=== PATIENT | male | born 1975 | race Caucasian/White ===

== ENCOUNTER 2017-09-11 04:27 | Emergency (ER) | payer OTHER ==
[2017-09-11 05:21] VITALS: BMI 31.9
--- NOTE | 2017-09-11 07:51 | PDOC ---
History of Present Illness <Rodolfo Garcia - Last Filed: 09/11/17 08:10> - General History Source: Patient Exam Limitations: No Limitations - History of Present Illness Initial Comments: 09/11/17 08:15 The patient is a 42 year old male with no significant PMH who presents to the emergency department with left ear and left mastoid swelling beginning approximately 5 days ago. The patient reports his swelling initially began posterior to his left ear which radiated to his left ear. He notes his ear swelling is associated with a slight left-sided headache and was initially associated with left ear pain which has since resolved. The patient also notes right hand pain which began within this past week. He reports his hand pain is intermittent and believes it to be associated with his joints. The patient also notes a cough within the past week which is intermittently productive of yellowish sputum. His girlfriend notes that she has had a post-nasal drip and 2 sinus infections within the past month and a half. The patient denies chest pain, shortness of breath, and dizziness. Denies fever, chills, nausea, vomit, diarrhea and constipation. Denies dysuria, frequency, urgency and hematuria. Allergies: NKA Past surgical history: None reported. Social history: No reported cigarette, alcohol, or drug use. PCP: Dr. Rosado ([facility]) <Peter Moralez - Last Filed: 09/11/17 08:17> - General Chief Complaint: Edema Stated Complaint: SWELLING,EAR/HANDS Time Seen by Provider: 09/11/17 07:48 Past History - Suicide/Smoking/Psychosocial Hx Smoking History: Never smoked Have you smoked in the past 12 months: No Information on smoking cessation initiated: No Hx Alcohol Use: No Drug/Substance Use Hx: No <Rodolfo Garcia - Last Filed: 09/11/17 08:10> <Peter Moralez - Last Filed: 09/11/17 08:17> - Past Medical History Allergies/Adverse Reactions: Allergies Allergy/AdvReac Type Severity Reaction Status Date / Time No Known Allergies Allergy Verified 09/11/17 05:18 Home Medications: Ambulatory Orders Ciprofloxacin [Cipro (Restricted To Id)] 500 mg PO BID #14 tablet 09/11/17 Review of Systems - Review of Systems Able to Perform ROS?: Yes Comments:: 09/11/17 08:15 CONSTITUTIONAL: No fever, no chills, no fatigue EYES: No visual changes ENT: (+) Left ear and left mastoid swelling. no sore throat CARDIOVASCULAR: No chest pain, no palpitations RESPIRATORY: No cough, no SOB GI: No abdominal pain. No nausea, no vomiting, no constipation, no diarrhea GENITOURINARY: No dysuria, no frequency, no hematuria MUSKULOSKELETAL: (+) Right hand joint pain. No backpain, no myalgias SKIN: No rash NEURO: (+) Slight left sided headache. <Peter Moralez - Last Filed: 09/11/17 08:17> *Physical Exam - Vital Signs Last Vital Signs Temp Pulse Resp BP Pulse Ox 98.2 F 81 14 133/80 97 09/11/17 05:19 09/11/17 05:19 09/11/17 05:19 09/11/17 05:19 09/11/17 05:19 <Rodolfo Garcia - Last Filed: 09/11/17 08:10> - Vital Signs Last Vital Signs Temp Pulse Resp BP Pulse Ox 98.2 F 81 14 133/80 97 09/11/17 05:19 09/11/17 05:19 09/11/17 05:19 09/11/17 05:19 09/11/17 05:19 - Physical Exam Comments: 09/11/17 08:15 CONSTITUTIONAL: Well-appearing; well-nourished; in no apparent distress HEAD: Normocephalic; atraumatic EYES: PERRL; EOM intact ENMT: (+) Soft tissue swelling posterior to left ear. (+) Swelling to superior aspect auricular cartilage with mild tenderness. TM normal bilaterally. No tragus tenderness normal oropharynx NECK: Supple; non-tender; no cervical lymphadenopathy CARD: Normal S1, S2; no murmurs, rubs, or gallops RESP: Normal chest excursion with respiration; breath sounds clear and equal bilaterally; no wheezes, rhonchi, or rales ABD: Soft, non-distended; non-tender; no palpable organomegaly, no palpable hernias EXT: Normal ROM in all four extremities; non-tender to palpation; distal pulses intact SKIN: Warm, dry, no rash NEURO: No focal neurological deficiencies. <Peter Moralez - Last Filed: 09/11/17 08:17> Medical Decision Making - Medical Decision Making 09/11/17 08:11 Patient is a well appearing 42-year-old male who presents to the ER with atraumatic edema of the left superior helix of the auricular cartilage with surrounding soft tissue swelling posteriorly which is mildly tender to palpation. TM is within normal limit. There is no tragus tenderness. Mastoid is nontender either. There is no discharge. I do not suspect malignant otitis externa at this time. Auricular chondritis is suspected. We'll treat with Cipro. Will discharge with ENT follow-up as needed. joint pain may be related to mycoplasma infection which cipro will cover. <Rodolfo Garcia - Last Filed: 09/11/17 08:10> *DC/Admit/Observation/Transfer - Attestations Physician Attestion: 09/11/17 08:10 The documentation was prepared by the scribe under my direct supervision. I have reviewed the documentation which correctly represents the findings, medical decision-making and critical action taken by me. <Rodolfo Garcia - Last Filed: 09/11/17 08:10> - Attestations Scribe Attestion: 09/11/17 08:15 Documentation prepared by Peter Moralez, acting as medical office technology instructor for Rodolfo Garcia MD. <Peter Moralez - Last Filed: 09/11/17 08:17> Diagnosis at time of Disposition: Chondritis of left external ear Joint pain Qualifiers: Joint pain location: wrist Laterality: bilateral Qualified Code(s): M25.531 - Pain in right wrist - Discharge Dispostion Disposition: HOME Condition at time of disposition: Stable - Prescriptions Prescriptions: Ciprofloxacin [Cipro (Restricted To Id)] 500 mg PO BID #14 tablet - Referrals Referrals: Carlos Cedeno MD [Staff Physician] - - Patient Instructions Printed Discharge Instructions: DI for Costochondritis, DI for Joint Pain
[2017-09-11 08:53] VITALS: BP 138/88; PULSE 77; TEMP 97.8
== END 2017-09-11 08:47 | disposition home or self-care (01) ==
LOC: JER 04:27
DX: M25.531 Pain in right wrist (principal); M94.8X8 Other specified disorders of cartilage, other site
CPT/HCPCS: 99281-25